=== PATIENT | female | born 1965 | race Caucasian/White ===

== ENCOUNTER → 2016-11-04 | Outpatient (CLI) | payer MEDICAID ==
--- NOTE | 2016-11-04 11:09 | RADIOLOGY REPORT PS360 ---
[id number] VIEWS HISTORY: Posttraumatic chest wall pain RT CHEST WALL PAIN ORDERING PHYSICIAN: Leoncio Navas PATIENT AGE: 51 years COMPARISON: None FINDINGS: There are multiple healing right rib fractures involving the right fourth, fifth, seventh, eighth, ninth, and 10th ribs with callus formation noted over the fractures. The fourth rib fractures slightly displaced medially. There is some mild pleural-parenchymal thickening along the right lower hemithorax laterally with blunting of the CP angle suggesting small effusion versus pleural thickening. There is some irregular increased density in the right lower lung zone laterally could be due to atelectatic or fibrotic change. The left lung is clear. IMPRESSION: Multiple healing right rib fractures with pleural parenchymal changes as described above
== END ==
LOC: RAD 10:21
DX: R07.1 Chest pain on breathing (principal)